=== PATIENT | female | born 1945 | race Caucasian/White ===

== ENCOUNTER → 2017-02-25 | Outpatient (CLI) | payer MEDICARE, MEDICAID ==
[~2017-02-25] VITALS: Ht 165.1 cm; Wt 74.5 kg
[~2017-02-25] MED LIST: ACET325T PO; ALBU0.08 NEB; ASPI1TAB69 PO; ATOR20TA15 PO; CHLORHEXIDINE GLUCONATE 2 % 1 PACK (2 CLOTHS) TOPICAL PRN; CLON0.5T PO; COUM4TAB PO; DILA100C PO; FERR300S PO; GENT0.3G EACH EYE; GLYC1TAB17 PO; GUAI100S7 PO; GUAI1TAB27 PO; INSULIN HUMAN REGULAR 1,000 UNITS/10 ML VIAL SQ PRN; JEVILIQ12 G-TUBE; LACO100 PO; LACTATED RINGER'S 1000 ML IV PRN; LEVS0.124 SL; LORA-474 PO; METO25TA3 PO; METO5TAB PO; METOPROLOL TARTRATE 25 MG TAB PO PRN; OMEP40CA2 PO; OXYGENTANK NAS.CANULA; PHENO60 PO; POLY99.0 EACH EYE; POVIDONE IODINE 5% (ANTISEPSIS KIT) 4 APPLICATIONS EACH NARE PRN; RANI150T PO; RANI300T PO; ROPI.25 PO; SCOP1PAT2 T-DERMAL; SODIUM CHLORID 0.9% 500 ML IV PRN; SPIRCAP INH; VIMP200T PO; VITA2000 PO; XARE15TA PO; ZOFR4TAB PO; ZOLO25TA PO
[2017-02-25 08:19] VITALS: BP 151/92; PULSE 68; RESP 16; TEMP 97.7; O2SAT 96
[2017-02-25 09:04] LABS: INTERNATIONAL NORMALIZED RATIO 1.6 RATIO; PROTHROMBIN TIME - PATIENT 17.6 SEC (9.8-11.6)
--- NOTE | 2017-02-25 14:41 | EKG ---
Date Performed: 02/25/2017 Time Performed: 08:49:06 PTAGE: 72 years EKG: BASELINE ARTIFACT PRESENT. Sinus rhythm LOW QRS VOLTAGE IN PRECORDIAL LEADS BORDERLINE ECG COMPARED TO PRIOR ELECTROCARDIOGRAM, Both EKGs harley ve artifact. The prior echocardiogram may have had slightly more ST segment abnormalities. PREVIOUS TRACING : 12/15/2014 02.47 DOCTOR: Eddie Elliott Interpretating Date/Time 02/25/2017 14:39:50
== END ==
LOC: HEND 07:24
PROVIDERS: ATTEND Internal Medicine Gastroenterology
DX: Z53.09 Procedure and treatment not carried out because of other contraindication (principal); R79.1 Abnormal coagulation profile; Z01.810 Encounter for preprocedural cardiovascular examination
CPT/HCPCS: 85610; 93005; G0463; 99211

== ENCOUNTER → 2017-02-28 | Outpatient (CLI) | payer MEDICARE, MEDICAID ==
[~2017-02-28] VITALS: Ht 165.1 cm; Wt 77.0 kg
[~2017-02-28] MED LIST changes: -ASPI1TAB69 PO; -FERR300S PO; -GUAI1TAB27 PO; -LACO100 PO; -LEVS0.124 SL; -LORA-474 PO; -OXYGENTANK NAS.CANULA; +PROPOFOL 200 MG/20 ML AMP IV ONE; -XARE15TA PO
[2017-02-28 10:21] VITALS: BP 137/80; PULSE 78; RESP 20; TEMP 97.7; O2SAT 90
[2017-02-28 10:34] LABS: INTERNATIONAL NORMALIZED RATIO 1.1 RATIO; PROTHROMBIN TIME - PATIENT 11.8 SEC (9.8-11.6)
--- NOTE | 2017-02-28 11:25 | GIPROC ---
[facility] [address] [facility]. [facility], [address] EGD PROCEDURE REPORT EXAM DATE: 02/28/2017 PATIENT NAME: Corrine Dorsey MR #: [id number] BIRTHDATE: 1945 ATTENDING: Tamanna Saravia MD ORDER #: [id number] OCEANOGRAPHY TEACHER: Willow Gay and Prabhjot Betancourt STATUS: outpatient INDICATIONS: The patient is a 72 yr old female here for an EGD due to dysphagia , peg exchange PROCEDURE PERFORMED: EGD w/ biopsy EGD w/ dilation of esophagus via guidewire egd with peg exchange MEDICATIONS: Per Anesthesia and None. TOPICAL ANESTHETIC: none CONSENT: The patient understands the risks and benefits of the procedure and understands that these risks include, but are not limited to: sedation, allergic reaction, infection, perforation and/or bleeding. Alternative means of evaluation and treatment include, among others: physical exam, x-rays, and/or surgical intervention. The patient elects to proceed with this endoscopic procedure. medical equipment was checked for proper function. Hand hygiene and appropriate measures for infection prevention was taken. After the risks, benefits and alternatives of the procedure were thoroughly explained, Informed consent was verified, confirmed and timeout was successfully executed by the treatment team. The patient was anesthetized with topical anesthesia and the Pentax [id number] endoscope was introduced through the mouth and advanced to the second portion of the duodenum. Retroflexed views revealed a hiatal hernia The gastroscope was then slowly withdrawn and removed. 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 ADVERSE EVENTS: There were no complications. IMPRESSIONS: 1. 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 Retroflexed views revealed a hiatal hernia RECOMMENDATIONS: 1. Await biopsy results. Biopsy results will not be ready for 7-10 days. If you don't hear from us in two weeks, call our office for biopsy results. 2. Continue ppi restart tf today restart anticoagulation today, please check with medical doctor dose and frequency PATIENT CONDITION: stable DISPOSITION: Home REPEAT EXAM: Return as needed for EGD with dilatation Tamanna Saravia MD eSigned: Tamanna Saravia MD 02/28/2017 11:24 AM cc: PATIENT NAME: Corrine Dorsey MR#: [id number]
[2017-02-28 12:05] VITALS: BP 128/76; PULSE 60; RESP 20; TEMP 96.8; O2SAT 97
== END ==
LOC: HEND 09:07
PROVIDERS: ATTEND Internal Medicine Gastroenterology
DX: K22.2 Esophageal obstruction (principal); R13.10 Dysphagia, unspecified; K20.9 Esophagitis, unspecified; E46 Unspecified protein-calorie malnutrition
CPT/HCPCS: 00740; 43239; 43246; 43248; 85610; 88305; C1769; J7120